=== PATIENT | female | born 1995 | race Two or more races ===

== ENCOUNTER → 2024-09-14 | Outpatient (CLI) | payer MEDICAID, SELFPAY ==
--- NOTE | 2024-09-14 08:18 | XR_ITS ---
Examination: Complete OB ultrasound greater than 14 weeks Date and time of exam: September 14, 2024 0843 hours INDICATIONS: No care Findings: Viable intrauterine single fetus with single amniotic sac presentation cephalic spine maternal right Cardiac motion 145 BPM Placenta anterior fundal grade 2 Umbilical cord insertion seen Amniotic fluid index 6.7 cm Cervix 3.3 cm closed Right ovary 2.8 cm arterial flow. Left ovary 2.5 cm arterial flow. Composite estimated gestational age based on BPD, head circumference, abdominal circumference, femur length is 32 weeks 0 days Estimated weight 1962 g. Survey of intracranial anatomy, spinal anatomy, abdominal anatomy, four-chamber heart performed with no abnormalities identified. Impression: Viable intrauterine gestation cephalic presentation.
== END | disposition home or self-care (01) ==
LOC: CDIM 08:04
PROVIDERS: Referring Provider Obstetrics & Gynecology; Visit Provider Obstetrics & Gynecology
DX: O09.33 Supervision of pregnancy with insufficient antenatal care, third trimester (principal); Z3A.32 32 weeks gestation of pregnancy
CPT/HCPCS: 76805

== ENCOUNTER 2024-09-17 21:58 | Observation (INO) | payer MEDICAID, SELFPAY ==
[2024-09-17] VITALS (22 sets, daily range): BP systolic 118–130; BP diastolic 71–72; PULSE 61–78; RESP 18–98; TEMP 37.1; O2SAT 98–100; BMI 25.2
--- NOTE | 2024-09-17 22:12 | XR_ITS ---
Examination: Complete OB ultrasound greater than 14 weeks Date and time of exam: September 17, 2024 1036 hours INDICATIONS: No care, leaking amniotic fluid today Findings: Viable intrauterine single fetus with single amniotic sac presentation cephalic Cardiac motion 145 BPM Placenta fundal grade 1 Umbilical cord insertion 3 vessel seen Amniotic fluid index 5.9 cm spine maternal right Cervix 3.5 cm Ovaries obscured by bowel gas. Composite estimated gestational age based on BPD, head circumference, abdominal circumference, femur length is 32 weeks 0 days Estimated weight 2087.7 g. Survey of intracranial anatomy, spinal anatomy, abdominal anatomy, four-chamber heart performed with no abnormalities identified. Impression: Viable intrauterine gestation cephalic presentation Amniotic fluid index 5.9 cm.
[2024-09-17] MEDS: RINGERS LACTATED 1000 ML 1,000 ML 100 ML IV (22:30)
[2024-09-17] MEDS: BETAMET ACET/BETAMET NA PH (Celestone) 6 MG/ML VIAL 12 MG IM (22:55)
[2024-09-17 23:02] LABS: ROM Kit Lot # 5812387; ROM Swab Mixed By: GARRK1; Rupture of Fetal Membranes Negative (Negative); Swb Mxed in Solvent 1 min? Yes
[2024-09-17 23:43] LABS: Basophils # (Auto) 0.0 Thou/mm3 (0.0-0.2); Basophils % (Auto) 0 % (0-2.5); Eosinophils # (Auto) 0.0 Thou/mm3 (0.0-0.5); Eosinophils % (Auto) 1 % (0-10); Hematocrit 31.3 % (36.0-46.0); Hemoglobin 10.5 g/dL (12.0-16.0); Immature Granulocytes Auto 0.02 Thou/mm3 (0.00-0.00); Lymphocytes # (Auto) 1.5 Thou/mm3 (1.0-4.8); Lymphocytes % (Auto) 17 % (10-50); Mean Corpuscular HGB Conc 33.5 g/dl (31.0-37.0); Mean Corpuscular Hemoglobin 30.8 pg (25.0-35.0); Mean Corpuscular Volume 92 fL (80-100); Monocytes # (Auto) 0.6 Thou/mm3 (0.0-0.8); Monocytes % (Auto) 7 % (0-12); Neutrophils # (Auto) 6.5 Thou/mm3 (1.8-7.7); Neutrophils % (Auto) 75 % (37-80); Nucleated Red Blood Cell # 0.00 Thou/mm3 (0.00-0.00); Nucleated Red Blood Cell % 0 /100 WBC (0); Platelet Count 203 Thou/mm3 (140-440); RDW Standard Deviation 45.4 fL (36.4-46.3); Red Blood Count 3.41 Miln/mm3 (4.00-5.20); White Blood Count 8.6 Thou/mm3 (3.6-11.0)
[2024-09-17 23:51] LABS: Amphetamine/Metham Scrn,Ur OB Negative (Negative); Benzoylecgonine Screen, Ur OB Negative (Negative); Opiate Screen,Urine OB Negative (Negative); THC Screen,Urine OB Negative (Negative)
[2024-09-18] VITALS (33 sets, daily range): BP systolic 125–129; BP diastolic 65–81; PULSE 66–85; TEMP 36.3–36.5; O2SAT 96–100
[2024-09-18 00:05] LABS: HIV (1&2) Antibody Rapid Non-Reactive
[2024-09-18 00:23] LABS: Hepatitis B Surface Antigen Non Reactive (Non React); Rubella, IgG Antibody Reactive (Immune)
[2024-09-18 00:26] LABS: Syphilis Nonreactive (Nonreactive)
[2024-09-18 00:29] LABS: Collection Type, Urine Clean Catch
[2024-09-18 00:35] LABS: Bilirubin,Urine Negative (Negative); Blood,Urine Negative (Negative); Clarity,Urine Clear (Clear/Hazy); Color,Urine Lt Yellow (Lt Yel-Yel); Culture Indicated,Urine Yes; Glucose, Urine Negative (Negative); Ketones,Urine Negative (Negative); Leukocyte Esterase,Urine 1+ (Negative); Nitrite,Urine Negative (Negative); PH,Urine 6.0 (5.0-7.0); Protein,Urine Trace (Neg - Trace); Specific Gravity,Urine >= 1.030 (1.001-1.035); Urobilinogen,Urine 0.2 mg/dL (0.0-1.0)
[2024-09-18] MEDS: Magnesium Sulfate 4 GM Ivpb 4 GM/50 ML BAG IV (01:00)
[2024-09-18] MEDS: Ampicillin Inj 2,000 MG in SODIUM CHLORIDE 0.9% (POP) 100 ML 200 MG IV (01:15)
[2024-09-18] MEDS: MAGNESIUM SULF 20 GM IVPB 20 GM/500 ML BAG IV (01:20)
--- NOTE | 2024-09-18 01:21 | ESPR_ITS ---
Addendum Progress Note Addendum Date of report being addended: 09/25/24 Narrative: The patient is a 29-year-old -1-0-4. She presented to triage 09/17/2024 at around 11 PM reporting ruptured membranes. She was not sure how she was. She stated that she could not obtain any care care this . She tried to get in with [facility] and they are not taking new patients. She had one ultrasound dated September 14, 2024 revealing a live intrauterine at 32 weeks estimated gestational age in the vertex presentation with a estimated weight of 1962 gm. She had no lab work. At first we were not sure if she was ruptured. A AmniSure was done and was negative. I performed a sterile speculum exam at bedside and did not see a large amount of fluid. Patient was observed in triage and a second ultrasound was ordered. Baby is in the vertex presentation weighing 2087 g with an SOILA today of 5.9. The patient then had a large gush of fluid. She began diana about every 5 minutes. Patient rates them as mild. As she is only 32 weeks estimated gestational age and we do not have a high level nursery to take care of the baby here, a request was made to transfer the patient to [place] and they accepted. She will be transferred by helicopter to [place]. Just she has the following obstetrical history: In 2012 she had a term vaginal delivery 7 pounds 9 ounces 2020 a vaginal delivery of 36 6/7 weeks baby no weight available 2020 391/7 another vaginal delivery weeks 3770 g or 8 pounds 6 ounces In 2022 she had a vaginal delivery weighing about 3500 g or 7 pounds 7 ounces. In this , patient has been unable to seek care at [facility] she states they are not accepting new patients. She denies drug use. She has no significant past medical history including no asthma, diabetes, hypertension, or other chronic medical problems. Her BMI is 25. Physical exam patient is alert and oriented x 3 in no apparent distress. Heart is regular rate and rhythm no murmurs gallops Lungs are clear Abdomen is gravid nontender SSE at bedside reveals cervix appears to be closed with not a lot of fluid filling the speculum. No vaginal bleeding. heart tones are in the 140s and reactive. Patient is having mild regular contractions every 5 minutes. labs done on admission are as follows: O positive/ RPR nonreactive/rubella immune /HIV negative/ hepatitis B surface antigen negative/ urine culture is pending /urinalysis is negative Urine drug screen is negative As the patient is only 32 weeks , the transfer service was called and patient is able to be transferred to [place] by helicopter. All paperwork was filled out. The patient was consented for the transfer she understands the risk including the risk of labor the risk of getting into some type of car accident or helicopter accident, the risk of having a baby in the transport vehicle. All questions were answered all consents were signed. Dr. Alonzo is the accepting physician Group B strep was done. Betamethasone was given at 2255 Ampicillin was started Azithromycin 500 IV was given. Madelyn Hadley MD
== END 2024-09-18 02:42 | disposition short-term general hospital (02) ==
PROVIDERS: Admitting Provider Obstetrics & Gynecology; Visit Provider Obstetrics & Gynecology
DX: O42.913 Preterm premature rupture of membranes, unspecified as to length of time between rupture and onset of labor, third trimester (principal); O09.33 Supervision of pregnancy with insufficient antenatal care, third trimester; O47.03 False labor before 37 completed weeks of gestation, third trimester; Z3A.32 32 weeks gestation of pregnancy
CPT/HCPCS: 36415; 59025; 59899; 76805; 80307; 81001; 84112; 85025; 86703; 86762; 86780; 86850; 86900; 86901; 87081; 87086; 87340; 96372; G0378; J0290; J0702; J3475; J7050; J7120